=== PATIENT | male | born 1960 | race Two or more races ===

== ENCOUNTER 2025-02-23 21:29 | Emergency (ER) | payer OTHER ==
[~2025-02-23] VITALS: Ht 167.6 cm; Wt 99.1 kg
[2025-02-23 21:34] VITALS: BP 157/74; PULSE 77; RESP 19; TEMP 97.6; O2SAT 99
[2025-02-23 22:40] LABS: Hematocrit 43.8 % (41.0-53.0); Hemoglobin 14.7 g/dL (13.5-17.5); Mean Corpuscular Hemoglobin 30.6 pg (28.0-32.0); Mean Corpuscular Volume 91.1 fL (80.0-100.0); Nucleated Red Blood Cells % 0.1 %
[2025-02-23 23:00] LABS: Albumin 4.2 g/dL (3.2-4.8); Anion Gap 12 (5-15); BUN/Creatinine Ratio 14.4 (10.0-20.0); Blood Urea Nitrogen 14 mg/dL (9-23); Calcium 9.1 mg/dL (8.7-10.4); Carbon Dioxide 25 mmol/L (20-31); Chloride 99 mmol/L (98-107); Potassium 4.0 mmol/L (3.5-5.1); Total Protein 7.0 g/dL (5.7-8.2)
[2025-02-23 23:01] LABS: Bilirubin, Total 0.5 mg/dL (0.2-1.0)
[2025-02-23 23:03] LABS: Alanine Aminotransferase 153 U/L (7-40); Alkaline Phosphatase 136 U/L (46-116); Glucose 130 mg/dL (74-106); Sodium 136 mmol/L (136-145)
--- NOTE | 2025-02-23 23:17 | DVH ---
CT SCAN ABDOMEN AND PELVIS WITHOUT CONTRAST CLINICAL HISTORY: Abdominal pain constipation TECHNIQUE: Helical axial images are obtained from the lung bases through the pelvis without oral cont rast. No intravenous contrast was administered. Coronal and sagittal reformatted images were generate d from thin section reconstructions. One or more of the following radiation dose reduction techniques were used for this examination: automated exposure control, adjustment of the mA and/or kV according to patient size, use of iterative reconstruction technique. COMPARISON: None FINDINGS: LOWER THORAX: Peripheral reticular opacities in the imaged lower lungs. This may reflect early interstitial disease . ABDOMEN AND PELVIS: Evaluation of visceral and vascular structures is limited due to lack of contrast administration. Decreased hepatic parenchymal attenuation which is most commonly seen with fatty infiltration. Other dior no discrete Hepatic lesions as visualized. The unenhanced spleen, pancreas and adrenals appear grossly unremarkable. The gallbladder is surgically absent. No appreciable biliary ductal dilatation. No hydroureteronephrosis or sizable, obstructing urinary tract calculi identified. No evidence of small-bowel obstruction. Moderate volume stool throughout the colon and rectum. No fr ee intraperitoneal air or fluid identified. Normal caliber appendix. Thickening versus underdistention of the urinary bladder. No sizable bladder calculus. Degenerative changes at L5-S1. IMPRESSION: Moderate volume stool throughout the colon and rectum appears consistent with history of constipation . Thickening versus underdistention of the urinary bladder. Correlate for possible UTI/cystitis.
--- NOTE | 2025-02-24 00:08 | ED.PDOC ---
GI ASSESSMENT HPI Comments Sherwin HPI: Poor Historian. 64-year-old male presents to emergency department for evaluation of constipation for the last few days. Patient is status post laparoscopic cholecystectomy this past Sunday. Patient has been taking ibuprofen for pain control at home. Patient has been eating normal food including his last meal today was steak and vegetables. Family tried [id number] supplements to help him with his constipation including fiber magnesium and suppositories. While I was evaluating the patient he said he wants to go to the bathroom to have a bowel movement. Past Medical History: DM, HLD, HTN Past Surgical History: Cholecystectomy Vitals: Temperature 97.6F Pulse 77 Respiratory rate of 19 Blood pressure 157/74 SpO2 99%RA REVIEW OF SYSTEMS: CONSTITUTIONAL: Denies acute: fever, diaphoresis, chills, generalized weakness. HEAD: Denies acute: headache, photophobia Eyes: Denies acute: Double vision, vision loss, eye pain, eye discharge. EARS: Denies acute: tinnitus, hearing loss, ear discharge, ear pain, THROAT: Denies acute: sore throat, swelling, difficulty swallowing , pain with swallowing, change in voice. NECK: Denies acute: neck pain, neck swelling, stiff neck. HEART: Denies acute : chest pain, palpitations, LUNGS: Denies acute: SOB, wheezing, cough, hemoptysis ABDOMEN: Denies acute: Nausea, Vomiting, diarrhea, melena , hematemesis, hematochezia SKIN: Denies acute: rash, redness, lesions, itchiness. EXTREMITIES: Denies acute: calf pain, numbness, tingling, weakness, denies pain in extremity. Denies acute: Low back pain. Neuro: Denies acute: focal neurological deficit, motor or sensory focal neurological deficit, tremors, seizure like activity, confusion, dizziness, change in mental status, loss of bowel or bladder function, cauda equina like symptoms. : Denies acute: dysuria, hematuria, flank pain, increase in urinary frequency. PSYCH: Denies acute: hallucination, suicidal ideation, homicidal ideation. PHYSICAL EXAM: General: ----[id number]----acute distress, awake and alert. Head: normocephalic, atraumatic. Neck: supple, trachea is midline, no swelling. Throat: Normal phonation. Eyes:, no erythema, no purulent discharge, no proptosis, no icterus. Heart: regular rate, regular rhythm, no significant murmur appreciated. Lungs: no apparent respiratory distress, Able to speak in full sentences. No wheezing, no rhonchi, no crackles. No stridors Clear to auscultation bilaterally. Abdomen: Left-sided abdominal tender to palpation, non distended, soft, no guarding, no rebound, + bowel sounds. Evaluation of the surgical incision sites is unremarkable. Neuro: Awake, Alert, oriented to name, self, situation, follows commands GCS=15. Speech is normal. Skin: no petechia, no purpura, no cyanosis, non-pale, not jaundice. Lower extremities: --no - Pitting edema no deformity, no focal swelling, no calf TTP. Makes eye contact. moves all four extremities. Face: no apparent facial droop. Ambulating in the ED independently. ED COURSE: DISCLAIMER: This medical document was created using an electronic medical record system with voice recognition software and computerized dictation system. Although this document has been carefully reviewed, there might still be some phonetic and typographical errors. Occasional wrong-word or "sound-alike" substitutions may have occurred due to the inherent limitations of voice recognition software. These areas are purely typographical due to imperfections of the software programs and do not reflect any compromise in the patient's medical care. Please read the chart carefully and recognize, using context, where these substitutions have occurred. Chief Complaint: Abdominal Pain Time Seen by MD: 23:27 Allergies: Coded Allergies: NO KNOWN ALLERGIES (Unverified , 02/23/25) Information Source: Patient, Relative Mode of Arrival: Ambulatory Was a procedure done? Was a procedure done?: No GI differential Dx Differential Diagnosis: Other (DDX include Diverticulitis, colitis, gastroenteritis, acute abdomen, bowel obstruction, enteritis, constipation, volvulus, , intraAbdominal mass/neoplasm, Inflammatory bowel disease, ischemic bowel, gastroparesis, narcotics abuse/dependency, fecal impaction, low fiber intake.) X-Ray, Labs, Meds, VS Vital Signs Date Time Temp Pulse Resp B/P (MAP) Pulse Ox O2 Delivery O2 Flow Rate FiO2 8/25/25 21:34 97.6 77 19 157/74 99 97.6 Lab Test 02/23/25 22:17 Range/Units White Blood Count 17.3 H 4.4-10.8 10^3/uL Red Blood Count 4.81 4.5-5.90 10^6/uL Hemoglobin 14.7 13.5-17.5 g/dL Hematocrit 43.8 41.0-53.0 % Mean Corpuscular Volume 91.1 80.0-100.0 fL Mean Corpuscular Hemoglobin 30.6 28.0-32.0 pg Mean Corpuscular Hemoglobin Concent 33.6 32.0-36.0 g/dL Red Cell Distribution Width 14.4 H 11.8-14.3 % Platelet Count 230 140-450 10^3/uL Mean Platelet Volume 9.1 6.9-10.8 fL Neutrophils (%) (Auto) 70.4 37.0-80.0 % Lymphocytes (%) (Auto) 21.5 10.0-50.0 % Monocytes (%) (Auto) 6.4 0.0-12.0 % Eosinophils (%) (Auto) 1.1 0.0-7.0 % Basophils (%) (Auto) 0.6 0.0-2.0 % Neutrophils # (Auto) 12.2 H 1.6-8.6 10 ^3/uL Lymphocytes # (Auto) 3.7 0.4-5.4 10 ^3/uL Monocytes # (Auto) 1.1 0-1.3 10 ^3/uL Eosinophils # (Auto) 0.2 0-0.8 10 ^3/uL Basophils # (Auto) 0.1 0-0.2 10 ^3/uL Nucleated Red Blood Cells 0.1 % Sodium Level 136 136-145 mmol/L Potassium Level 4.0 3.5-5.1 mmol/L Chloride Level 99 98-107 mmol/L Carbon Dioxide Level 25 20-31 mmol/L Anion Gap 12 5-15 Blood Urea Nitrogen 14 9-23 mg/dL Creatinine 0.97 0.700-1.30 mg/dL Glomerular Filtration Rate Calc 86 >90 mL/min BUN/Creatinine Ratio 14.4 10.0-20.0 Serum Glucose 130 H 74-106 mg/dL Lactic Acid Level 1.5 0.4-2.0 mmol/L Calcium Level 9.1 8.7-10.4 mg/dL Total Bilirubin 0.5 0.2-1.0 mg/dL Aspartate Amino Transferase (AST) 85 H 13-40 U/L Alanine Aminotransferase (ALT) 153 H 7-40 U/L Alkaline Phosphatase 136 H 46-116 U/L Troponin I High Sensitivity < 3 L </=54 ng/L Total Protein 7.0 5.7-8.2 g/dL Albumin 4.2 3.2-4.8 g/dL [place] [address] Ph: [phone] DIAGNOSTIC IMAGING Diagnostic Imaging Report : [id number] Signed PATIENT: MARA ACOSTA ACCT: [id number] UNIT: [id number] : 1960 LOC: ER ROOM / BED: / AGE / SEX: 64 / M ADM STATUS: REG ER SERVICE 51 ORDERING PHYSICIAN: DELMY LEBRON DO PROCEDURE(s): ABPL - CT AB PEL WO CON-NO ORAL OR IV REASON: Abdominal pain constipation ORDER NUMBER(s): [id number], ACCESSION NUMBER(s): [id number] CT SCAN ABDOMEN AND PELVIS WITHOUT CONTRAST CLINICAL HISTORY: Abdominal pain constipation TECHNIQUE: Helical axial images are obtained from the lung bases through the pelvis without oral contrast. No intravenous contrast was administered. Coronal and sagittal reformatted images were generated from thin section reconstructions. One or more of the following radiation dose reduction techniques were used for this examination: automated exposure control, adjustment of the mA and/or kV according to patient size, use of iterative reconstruction technique. COMPARISON: None FINDINGS: LOWER THORAX: Peripheral reticular opacities in the imaged lower lungs. This may reflect early interstitial disease. ABDOMEN AND PELVIS: Evaluation of visceral and vascular structures is limited due to lack of contrast administration. Decreased hepatic parenchymal attenuation which is most commonly seen with fatty infiltration. Otherwise no discrete Hepatic lesions as visualized. The unenhanced spleen, pancreas and adrenals appear grossly unremarkable. The gallbladder is surgically absent. No appreciable biliary ductal dilatation. No hydroureteronephrosis or sizable, obstructing urinary tract calculi identified. No evidence of small-bowel obstruction. Moderate volume stool throughout the colon and rectum. No free intraperitoneal air or fluid identified. Normal caliber appendix. Thickening versus underdistention of the urinary bladder. No sizable bladder calculus. Degenerative changes at L5-S1. IMPRESSION: Moderate volume stool throughout the colon and rectum appears consistent with history of constipation. Thickening versus underdistention of the urinary bladder. Correlate for possible UTI/cystitis. ATED BY: ALONZO CROFT MD DICTATED DATE/TIME: 02/23/252314 SIGNED BY: ALONZO CROFT MD SIGNED DATE/TIME: 02/23/252314 CC: Time of 1ST Reevaluation: 00:30 Reevaluation 1ST: Unchanged Patient Education/Counseling: Diagnosis, Treatment, Need For Follow Up Family Education/Counseling: Diagnosis, Treatment, Need For Follow Up Comments MDM: patient presented with the above HPI.----constipation--workup was initiated. patient was found with the above mentioned diagnosis. the following medications were ordered: please refer to order lists of meds and tests obtained by myself Dr. Lebron. Patient ED course and VS have been stabilized. Patient has been reassessed in the ED and remained in a stable condition. Pertinent incidental findings were discussed with the patient and/or family. Patient/family voices understanding and is agreeable with plan. Patient has been observed in the ED adequate length of time to insure improvement/stability. Escalation of care considered: Consideration of escalation to observation or admission Patient was DISCHARGED home in a stable condition. All the reports of any imaging studies that were ordered by myself were reviewed by myself. SEPSIS Sepsis Screen Date sepsis recognized/suspect: Feb 23, 2025 Time Sepsis recognized/suspect: 2136 Recent Procedure: No On Antibiotic Therapy: No Respiratory Rate >20: No Heart Rate >90: Yes Temp<36 C (96.8 F) or >38.3 C: No SBP <90 or MAP <65 mmHG: No New Acute Mental Status Change: No Is the patient on CPAP, BIPAP,: No Physician Orders Ct Ab Pel Wo Con-No Oral Or Iv (02/23/25 21:52) Gas Systems Worker (02/23/25 ) Vital Signs Date Time Temp Pulse Resp B/P (MAP) Pulse Ox O2 Delivery O2 Flow Rate FiO2 02/23/25 21:34 97.6 77 19 157/74 99 97.6 Laboratory Tests Test 02/23/25 22:17 Lactic Acid Level 1.5 mmol/L (0.4-2.0) White Blood Count 17.3 10^3/uL (4.4-10.8) H Departure 1 Departure Time of Disposition: 00:09 Impression: Primary Impression: Constipation Disposition: 01 HOME / SELF CARE / HOMELESS Condition: Stable Additional Instructions: Additional instructions: Please read all instructions provided in this packet carefully. You MUST follow-up with your primary care/family doctor in 1 to 2 days. If you are unable to see your primary care/family doctor, please return to our emergency room for re-assessment and re-evaluation in 1 to 2 days. Return to the emergency room here in our facility or to the nearest ER [facility] if your symptoms change or worsen. CONSULTATIONS: you MUST Follow-up for consultation as soon as possible with: gastroenterology and general surgery in 1-2 days. Please call for appointment. You MUST call the consultants office yourself to make an appointment. You may need to arrange that through your insurance and/or your primary/family doctor. If you are unable to see the method consultant in 1 to 2 days, you must return to our emergency room (or any other ER of your choice) for re-assessment and re- evaluation. Adequate fluid hydration. Liquid diet only in the next 72 hours. Finish the GoLYTELY bottle in the next 12-24 hours. Although you have been discharged from the Emergency Department, this does not mean that you have a "clean bill of health". No definitive diagnosis for your symptoms has been made today. It is possible that you are in the process of developing a serious illness. This is why you must return to the ED without fail if any new or worsening symptoms develop. Below is a copy of your radiological report for follow up: [address] [address] Ph: [phone] DIAGNOSTIC IMAGING Diagnostic Imaging Report : [id number] Signed PATIENT: MARA ACOSTA ACCT: [id number] UNIT: [id number] : 1960 LOC: ER ROOM / BED: / AGE / SEX: 64 / M ADM STATUS: REG ER SERVICE 51 ORDERING PHYSICIAN: DELMY LEBRON DO PROCEDURE(s): ABPL - CT AB PEL WO CON-NO ORAL OR IV REASON: Abdominal pain constipation ORDER NUMBER(s): [id number], ACCESSION NUMBER(s): [id number] CT SCAN ABDOMEN AND PELVIS WITHOUT CONTRAST CLINICAL HISTORY: Abdominal pain constipation TECHNIQUE: Helical axial images are obtained from the lung bases through the pelvis without oral contrast. No intravenous contrast was administered. Coronal and sagittal reformatted images were generated from thin section reconstructions. One or more of the following radiation dose reduction techniques were used for this examination: automated exposure control, adjustm ent of the mA and/or kV according to patient size, use of iterative reconstruction technique. COMPARISON: None FINDINGS: LOWER THORAX: Peripheral reticular opacities in the imaged lower lungs. This may reflect early interstitial disease. ABDOMEN AND PELVIS: Evaluation of visceral and vascular structures is limited due to lack of contrast administration. Decreased hepatic parenchymal attenuation which is most commonly seen with fatty infiltration. Otherwise no discrete Hepatic lesions as visualized. The unenhanced spleen, pancreas and adrenals appear grossly unremarkable. The gallbladder is surgically absent. No appreciable biliary ductal dilatation. No hydroureteronephrosis or sizable, obstructing urinary tract calculi identified. No evidence of small-bowel obstruction. Moderate volume stool throughout the colon and rectum. No free intraperitoneal air or fluid identified. Normal caliber appendix. Thickening versus underdistention of the urinary bladder. No sizable bladder calculus. Degenerative changes at L5-S1. IMPRESSION: Moderate volume stool throughout the colon and rectum appears consistent with history of constipation. Thickening versus underdistention of the urinary bladder. Correlate for possible UTI/cystitis. ATED BY: ALONZO CROFT MD DICTATED DATE/TIME: 02/23/252314 SIGNED BY: ALONZO CROFT MD SIGNED DATE/TIME: 02/23/252314 CC: Discharged With: Self, Relative Critical Care Note Critical Care Time?: No I personally scribed for DELMY LEBRON DO ([email or web address]) on 02/24/25 at 00:08. Electronically submitted by Duane Simmons ([email or web address]). I personally scribed for DELMY LEBRON DO ([email or web address]) on 02/24/25 at 00:11. Electronically submitted by Duane Simmons ([email or web address]). I personally scribed for DELMY LEBRON DO ([email or web address]) on 02/24/25 at 00:32. Electronically submitted by Duane Simmons ([email or web address]). DELMY LEBRON DO Feb 24, 2025 00:08
[2025-02-24] MEDS: GOLYTELY 4L KIT PO ONE (00:15)
[2025-02-24] MEDS: SODIUM CHLORIDE 0.9% 1,000 ML IV ONE (00:15)
== END 2025-02-24 00:32 | disposition home or self-care (01) ==
LOC: ER 21:29
DX: K59.00 Constipation, unspecified (principal); E78.5 Hyperlipidemia, unspecified; E11.9 Type 2 diabetes mellitus without complications; I10 Essential (primary) hypertension; Z90.49 Acquired absence of other specified parts of digestive tract
CPT/HCPCS: 36415; 74176; 80053; 83605; 84484; 85025